=== PATIENT | female | born 1945 | race Caucasian/White ===

== ENCOUNTER → 2016-08-17 | Outpatient (CLI) | payer MEDICARE ==
[~2016-08-17] MED LIST: AMARYL4 MG PO; AMOXICILLIN500 M3 PO; ASPIRIN DELAYE325 MG PO; BENAZEPRIL PO; BP MED PO; CIPRO500 MG PO; COUMADIN10 M1 PO; Coumadin5 MG PO; ENOXAPARIN80 MG/0.2 SC; FLONASE ALLERG9.9 ML NAS; HCTZ PO; METOPROLOL PO; METOPROLOL SR50 MG PO; METOPROLOL SUC100 M1 PO; METOPROLOL TAR100 M1 PO; OCEAN104 ML NAS; SIMVASTATIN PO; SIMVASTATIN40 MG PO; TOPROL XL100 MG PO; ZITHROMAX500 MG PO; ZYRTEC-D 5 MG-11 TE1 PO; [UNRECOGNIZED DRUG - CODE] PO
[2016-08-17 18:57] LABS: INTERNATIONAL NORM RATIO 2.8 (2.0-3.5); PROTHROMBIN TIME 30.6 SECONDS (9.0-12.4)
== END | disposition home or self-care (01) ==
LOC: LAB 18:03
PROVIDERS: Family Medicine
DX: Z79.01 Long term (current) use of anticoagulants (principal)

== ENCOUNTER → 2016-11-09 | Outpatient (CLI) | payer MEDICARE ==
[2016-11-09 19:09] LABS: INTERNATIONAL NORM RATIO 2.4 (2.0-3.5); PROTHROMBIN TIME 27.4 SECONDS (9.0-12.4)
== END | disposition home or self-care (01) ==
LOC: LAB 18:11
PROVIDERS: Family Medicine
DX: Z79.01 Long term (current) use of anticoagulants (principal)

== ENCOUNTER → 2016-12-07 | Outpatient (CLI) | payer MEDICARE ==
[2016-12-07 18:45] LABS: INTERNATIONAL NORM RATIO 2.2 (2.0-3.5); PROTHROMBIN TIME 24.1 SECONDS (9.0-12.4)
== END | disposition home or self-care (01) ==
LOC: LAB 17:59
PROVIDERS: Family Medicine
DX: Z79.01 Long term (current) use of anticoagulants (principal)

== ENCOUNTER → 2016-12-16 | Outpatient (CLI) | payer MEDICARE ==
[2016-12-16 11:18] LABS: HEMATOCRIT 33.3 % (37.0-47.0); HEMOGLOBIN 11.2 g/dl (12.0-16.0); MEAN CORPUSCULAR HGB 29.9 pg (27.0-31.0); MEAN CORPUSCULAR HGB CONC 33.6 g/dl (33.0-37.0); MEAN PLATELET VOLUME 9.3 fl (9.6-12.3); RED BLOOD COUNT 3.74 10*6/uL (4.10-5.10); WHITE BLOOD COUNT 7.2 10*3/uL (4.8-10.8)
[2016-12-16 11:43] LABS: ALBUMIN 3.6 gm/dl (3.1-4.5); ALKALINE PHOSPHATASE 64 U/L (45-117); BILIRUBIN, TOTAL 0.4 mg/dl (0.2-1.0); BUN 16 mg/dl (7-24); CARBON DIOXIDE 29 mmol/L (21-32); CHLORIDE 97 mmol/L (98-107); CHOLESTEROL 233 mg/dL (<200); EST GLOM FILT AFRICAN AMERICAN > 60 ml/min; GLUCOSE 97 mg/dL (65-99); HDL CHOLESTEROL 40 mg/dl (40-60); LDL CHOLESTEROL 123 mg/dL (9-159); SGOT/AST 26 IU/L (3-35); SGPT/ALT 28 U/L (12-78); SODIUM 136 mmol/L (136-145); TOTAL PROTEIN 7.1 gm/dL (6.4-8.2); TRIGLYCERIDES 350 mg/dl (<150); VLDL CHOLESTEROL 70 mg/dL (6-40)
[2016-12-16 11:49] LABS: HEMOGLOBIN A1c 6.6 % (4.8-5.6)
== END | disposition home or self-care (01) ==
LOC: LAB 10:49
PROVIDERS: Family Medicine
DX: E78.00 Pure hypercholesterolemia, unspecified (principal); I10 Essential (primary) hypertension; E11.9 Type 2 diabetes mellitus without complications

== ENCOUNTER → 2017-01-04 | Outpatient (CLI) | payer MEDICARE ==
[2017-01-04 18:47] LABS: INTERNATIONAL NORM RATIO 2.4 (2.0-3.5); PROTHROMBIN TIME 27.4 SECONDS (9.0-12.4)
== END | disposition home or self-care (01) ==
LOC: LAB 18:17
PROVIDERS: Family Medicine
DX: Z79.01 Long term (current) use of anticoagulants (principal)

== ENCOUNTER → 2017-02-01 | Outpatient (CLI) | payer MEDICARE ==
[2017-02-01 19:52] LABS: INTERNATIONAL NORM RATIO 1.3 (2.0-3.5); PROTHROMBIN TIME 14.3 SECONDS (9.0-12.4)
== END | disposition home or self-care (01) ==
LOC: LAB 18:00
PROVIDERS: Family Medicine
DX: Z79.01 Long term (current) use of anticoagulants (principal)

== ENCOUNTER → 2017-02-08 | Outpatient (CLI) | payer MEDICARE ==
[2017-02-08 18:25] LABS: INTERNATIONAL NORM RATIO 1.2 (2.0-3.5); PROTHROMBIN TIME 12.6 SECONDS (9.0-12.4)
== END | disposition home or self-care (01) ==
LOC: LAB 17:56
PROVIDERS: Family Medicine
DX: Z79.01 Long term (current) use of anticoagulants (principal)

== ENCOUNTER → 2017-02-15 | Outpatient (CLI) | payer MEDICARE ==
[2017-02-15 18:43] LABS: INTERNATIONAL NORM RATIO 1.4 (2.0-3.5)
== END | disposition home or self-care (01) ==
LOC: LAB 18:08
PROVIDERS: Family Medicine
DX: Z79.01 Long term (current) use of anticoagulants (principal)

== ENCOUNTER → 2017-02-22 | Outpatient (CLI) | payer MEDICARE ==
[2017-02-22 18:44] LABS: INTERNATIONAL NORM RATIO 1.3 (2.0-3.5); PROTHROMBIN TIME 14.1 SECONDS (9.0-12.4)
== END | disposition home or self-care (01) ==
LOC: LAB 18:11
PROVIDERS: Family Medicine
DX: Z79.01 Long term (current) use of anticoagulants (principal)

== ENCOUNTER → 2017-03-01 | Outpatient (CLI) | payer MEDICARE ==
[2017-03-01 19:13] LABS: INTERNATIONAL NORM RATIO 2.1 (2.0-3.5); PROTHROMBIN TIME 23.9 SECONDS (9.0-12.4)
== END | disposition home or self-care (01) ==
LOC: LAB 17:59
PROVIDERS: Family Medicine
DX: Z79.01 Long term (current) use of anticoagulants (principal)

== ENCOUNTER 2017-03-29 21:27 | Emergency (ER) | payer MEDICARE ==
[~2017-03-29] VITALS: Ht 154.9 cm; Wt 77.1 kg
[2017-03-29 18:42] LABS: PROTHROMBIN TIME 107.3 SECONDS (9.0-12.4)
[2017-03-29 19:12] LABS: INTERNATIONAL NORM RATIO 8.8 (2.0-3.5)
[2017-03-29 22:30] LABS: BASO % 0.3 % (0.0-1.0); EOS # 0.1 10*3/uL (0.0-0.4); EOS % 1.9 % (1.0-4.0); HEMATOCRIT 28.5 % (37.0-47.0); HEMOGLOBIN 9.6 g/dl (12.0-16.0); LYMPH # 1.8 10*3/uL (1.3-4.4); MEAN CORPUSCULAR HGB 29.6 pg (27.0-31.0); MEAN CORPUSCULAR HGB CONC 33.7 g/dl (33.0-37.0); MEAN PLATELET VOLUME 9.1 fl (9.6-12.3); MONO # 0.4 10*3/uL (0.1-1.0); MONO % 5.2 % (3.0-9.0); NEUT # 4.9 10*3/uL (2.3-7.9); PLATELET COUNT AUTOMATED 220 10*3/uL (130-400); RED BLOOD COUNT 3.24 10*6/uL (4.10-5.10); RED CELL DISTRI WIDTH 12.9 % (0-14.5); WHITE BLOOD COUNT 7.3 10*3/uL (4.8-10.8)
[2017-03-29 22:58] LABS: INTERNATIONAL NORM RATIO 9.1 (2.0-3.5); PROTHROMBIN TIME 111.3 SECONDS (9.0-12.4)
== END 2017-03-29 23:42 | disposition home or self-care (01) ==
LOC: EDSTATUS 21:27 → ED 21:28
PROVIDERS: Emergency Medicine Emergency Medical Services; Family Medicine
DX: D68.32 Hemorrhagic disorder due to extrinsic circulating anticoagulants (principal); I48.91 Unspecified atrial fibrillation; E11.9 Type 2 diabetes mellitus without complications; I10 Essential (primary) hypertension; E78.5 Hyperlipidemia, unspecified; E66.9 Obesity, unspecified; M19.90 Unspecified osteoarthritis, unspecified site; Z79.01 Long term (current) use of anticoagulants; Z87.891 Personal history of nicotine dependence; Z90.710 Acquired absence of both cervix and uterus; Z98.890 Other specified postprocedural states; Z79.899 Other long term (current) drug therapy

== ENCOUNTER → 2017-03-31 | Outpatient (CLI) | payer MEDICARE ==
[2017-03-31 12:13] LABS: INTERNATIONAL NORM RATIO 1.1 (2.0-3.5); PROTHROMBIN TIME 11.9 SECONDS (9.0-12.4)
== END | disposition home or self-care (01) ==
LOC: LAB 11:29
PROVIDERS: Family Medicine
DX: Z79.01 Long term (current) use of anticoagulants (principal)

== ENCOUNTER → 2017-04-10 | Outpatient (CLI) | payer MEDICARE ==
[2017-04-10 18:52] LABS: INTERNATIONAL NORM RATIO 1.6 (2.0-3.5)
== END ==
LOC: LAB 18:10
PROVIDERS: Family Medicine
DX: Z79.01 Long term (current) use of anticoagulants (principal)

== ENCOUNTER → 2017-04-21 | Outpatient (CLI) | payer MEDICARE ==
[2017-04-21 13:45] LABS: INTERNATIONAL NORM RATIO 2.6 (2.0-3.5)
== END | disposition home or self-care (01) ==
LOC: LAB 13:02
PROVIDERS: Family Medicine
DX: Z79.01 Long term (current) use of anticoagulants (principal)

== ENCOUNTER → 2017-05-26 | Outpatient (CLI) | payer MEDICARE ==
[2017-05-26 08:31] LABS: ALBUMIN 3.7 gm/dl (3.1-4.5); CREATININE 1.14 mg/dL (0.55-1.02); POTASSIUM 3.4 mmol/L (3.5-5.1); TOTAL PROTEIN 7.6 gm/dL (6.4-8.2)
[2017-05-26 08:40] LABS: INTERNATIONAL NORM RATIO 2.8 (2.0-3.5)
== END | disposition home or self-care (01) ==
LOC: LAB 07:25
PROVIDERS: Family Medicine
DX: I10 Essential (primary) hypertension (principal); E11.9 Type 2 diabetes mellitus without complications; E78.00 Pure hypercholesterolemia, unspecified; Z79.01 Long term (current) use of anticoagulants

== ENCOUNTER → 2017-07-07 | Outpatient (CLI) | payer MEDICARE ==
[2017-07-07 13:14] LABS: INTERNATIONAL NORM RATIO 2.6 (2.0-3.5)
== END | disposition home or self-care (01) ==
LOC: LAB 12:33
PROVIDERS: Family Medicine
DX: Z79.01 Long term (current) use of anticoagulants (principal)

== ENCOUNTER → 2017-08-04 | Outpatient (CLI) | payer MEDICARE | END | disposition home or self-care (01) | LOC: LAB 12:40 | PROVIDERS: Family Medicine | DX: Z51.81 Encounter for therapeutic drug level monitoring (principal); Z79.01 Long term (current) use of anticoagulants ==

== ENCOUNTER → 2017-09-01 | Outpatient (CLI) | payer MEDICARE | END | disposition home or self-care (01) | LOC: LAB 12:43 | PROVIDERS: Family Medicine | DX: Z51.81 Encounter for therapeutic drug level monitoring (principal); Z79.01 Long term (current) use of anticoagulants ==

== ENCOUNTER → 2017-09-29 | Outpatient (CLI) | payer MEDICARE ==
[2017-09-29 14:33] LABS: INTERNATIONAL NORM RATIO 2.3 (2.0-3.5)
== END | disposition home or self-care (01) ==
LOC: LAB 13:00
PROVIDERS: Family Medicine
DX: Z51.81 Encounter for therapeutic drug level monitoring (principal); Z79.01 Long term (current) use of anticoagulants

== ENCOUNTER → 2017-10-27 | Outpatient (CLI) | payer MEDICARE ==
[2017-10-27 13:03] LABS: INTERNATIONAL NORM RATIO 2.7 (2.0-3.5)
== END | disposition home or self-care (01) ==
LOC: LAB 11:43
PROVIDERS: Family Medicine
DX: Z51.81 Encounter for therapeutic drug level monitoring (principal); Z79.01 Long term (current) use of anticoagulants

== ENCOUNTER → 2017-11-25 | Outpatient (CLI) | payer MEDICARE ==
[2017-11-25 10:36] LABS: INTERNATIONAL NORM RATIO 2.8 (2.0-3.5)
== END | disposition home or self-care (01) ==
LOC: LAB 09:31
PROVIDERS: Family Medicine
DX: Z51.81 Encounter for therapeutic drug level monitoring (principal); Z79.01 Long term (current) use of anticoagulants

== ENCOUNTER → 2017-12-29 | Outpatient (CLI) | payer MEDICARE ==
[2017-12-29 11:23] LABS: HEMATOCRIT 33.8 % (37.0-47.0); HEMOGLOBIN 10.9 g/dl (12.0-16.0); MEAN CELL VOLUME 91.8 fl (81.0-99.0); MEAN CORPUSCULAR HGB 29.6 pg (27.0-31.0); MEAN CORPUSCULAR HGB CONC 32.2 g/dl (33.0-37.0); MEAN PLATELET VOLUME 9.7 fl (9.6-12.3); RED BLOOD COUNT 3.68 10*6/uL (4.10-5.10); RED CELL DISTRI WIDTH 12.7 % (0-14.5); WHITE BLOOD COUNT 6.1 10*3/uL (4.8-10.8)
[2017-12-29 11:44] LABS: ALBUMIN 3.8 gm/dl (3.1-4.5); BUN 14 mg/dl (7-24); CHLORIDE 101 mmol/L (98-107); CHOLESTEROL 198 mg/dL (<200); CREATININE 1.07 mg/dL (0.55-1.02); POTASSIUM 4.3 mmol/L (3.5-5.1); SGOT/AST 20 IU/L (3-35); SGPT/ALT 25 U/L (12-78); SODIUM 134 mmol/L (136-145); TOTAL PROTEIN 7.2 gm/dL (6.4-8.2); TRIGLYCERIDES 230 mg/dl (<150); VLDL CHOLESTEROL 46 mg/dL (6-40)
[2017-12-29 11:45] LABS: ALKALINE PHOSPHATASE 55 U/L (45-117); HDL CHOLESTEROL 36 mg/dl (40-60); LDL CHOLESTEROL 116 mg/dL (9-159)
[2017-12-29 12:06] LABS: INTERNATIONAL NORM RATIO 2.1 (2.0-3.5)
== END | disposition home or self-care (01) ==
LOC: LAB 10:27
PROVIDERS: Family Medicine
DX: I10 Essential (primary) hypertension (principal); E11.9 Type 2 diabetes mellitus without complications; E55.9 Vitamin D deficiency, unspecified; E78.00 Pure hypercholesterolemia, unspecified; Z79.01 Long term (current) use of anticoagulants

== ENCOUNTER → 2018-01-06 | Emergency (ER) | payer MEDICARE ==
[~2018-01-06] VITALS: Ht 152.4 cm; Wt 77.1 kg
== END ==
LOC: ED 13:12
DX: S30.861A Insect bite (nonvenomous) of abdominal wall, initial encounter (principal); I48.91 Unspecified atrial fibrillation; E11.9 Type 2 diabetes mellitus without complications; E78.5 Hyperlipidemia, unspecified; I10 Essential (primary) hypertension; E66.9 Obesity, unspecified; M19.90 Unspecified osteoarthritis, unspecified site; Z79.01 Long term (current) use of anticoagulants; Z87.891 Personal history of nicotine dependence; Z90.710 Acquired absence of both cervix and uterus; Z98.890 Other specified postprocedural states; Z79.899 Other long term (current) drug therapy; W57.XXXA Bitten or stung by nonvenomous insect and other nonvenomous arthropods, initial encounter; Y93.89 Activity, other specified; Y92.89 Other specified places as the place of occurrence of the external cause; Y99.9 Unspecified external cause status

== ENCOUNTER → 2018-01-26 | Outpatient (CLI) | payer MEDICARE ==
[2018-01-26 13:13] LABS: INTERNATIONAL NORM RATIO 1.7 (2.0-3.5)
== END | disposition home or self-care (01) ==
LOC: LAB 11:56
PROVIDERS: Family Medicine
DX: Z79.01 Long term (current) use of anticoagulants (principal)

== ENCOUNTER → 2018-02-06 | Outpatient (CLI) | payer MEDICARE ==
[2018-02-06 11:38] LABS: INTERNATIONAL NORM RATIO 1.6 (2.0-3.5)
== END | disposition home or self-care (01) ==
LOC: LAB 10:25
PROVIDERS: Family Medicine
DX: Z51.81 Encounter for therapeutic drug level monitoring (principal); Z79.01 Long term (current) use of anticoagulants

== ENCOUNTER → 2018-02-13 | Outpatient (CLI) | payer MEDICARE ==
[2018-02-13 11:00] LABS: INTERNATIONAL NORM RATIO 1.8 (2.0-3.5)
== END | disposition home or self-care (01) ==
LOC: LAB 10:13
PROVIDERS: Family Medicine
DX: Z51.81 Encounter for therapeutic drug level monitoring (principal); Z79.01 Long term (current) use of anticoagulants

== ENCOUNTER → 2018-02-20 | Outpatient (CLI) | payer MEDICARE ==
[2018-02-20 14:40] LABS: INTERNATIONAL NORM RATIO 1.8 (2.0-3.5)
== END | disposition home or self-care (01) ==
LOC: LAB 12:54
PROVIDERS: Family Medicine
DX: Z51.81 Encounter for therapeutic drug level monitoring (principal); Z79.01 Long term (current) use of anticoagulants

== ENCOUNTER → 2018-03-02 | Outpatient (CLI) | payer MEDICARE ==
[2018-03-02 13:45] LABS: INTERNATIONAL NORM RATIO 1.8 (2.0-3.5)
== END | disposition home or self-care (01) ==
LOC: LAB 13:03
PROVIDERS: Family Medicine
DX: Z51.81 Encounter for therapeutic drug level monitoring (principal); Z79.01 Long term (current) use of anticoagulants

== ENCOUNTER → 2018-04-26 | Outpatient (CLI) | payer MEDICARE ==
[2018-04-26 14:22] LABS: INTERNATIONAL NORM RATIO 1.5 (2.0-3.5)
== END | disposition home or self-care (01) ==
LOC: LAB 13:13
PROVIDERS: Family Medicine
DX: Z51.81 Encounter for therapeutic drug level monitoring (principal); Z79.01 Long term (current) use of anticoagulants

== ENCOUNTER → 2018-05-10 | Outpatient (CLI) | payer MEDICARE ==
[2018-05-10 14:03] LABS: INTERNATIONAL NORM RATIO 1.4 (2.0-3.5)
== END | disposition home or self-care (01) ==
LOC: LAB 13:07
PROVIDERS: Family Medicine
DX: Z51.81 Encounter for therapeutic drug level monitoring (principal); Z79.01 Long term (current) use of anticoagulants

== ENCOUNTER → 2018-06-06 | Outpatient (CLI) | payer MEDICARE ==
[2018-06-06 15:36] LABS: INTERNATIONAL NORM RATIO 1.3 (2.0-3.5)
== END | disposition home or self-care (01) ==
LOC: LAB 14:13
PROVIDERS: Family Medicine
DX: Z79.01 Long term (current) use of anticoagulants (principal)

== ENCOUNTER → 2018-11-07 | Outpatient (CLI) | payer MEDICARE ==
[~2018-11-07] MED LIST changes: +AMINOPHYLLIN200 MG PO
[2018-11-07 11:42] LABS: ALBUMIN 3.3 gm/dl (3.1-4.5); ALKALINE PHOSPHATASE 66 U/L (45-117); BUN 16 mg/dl (7-24); CHLORIDE 103 mmol/L (98-107); CHOLESTEROL 223 mg/dL (<200); CPK 61 U/L (26-192); CREATININE 1.08 mg/dL (0.55-1.02); HDL CHOLESTEROL 39 mg/dl (40-60); LDL CHOLESTEROL 145 mg/dL (9-159); POTASSIUM 4.5 mmol/L (3.5-5.1); SGOT/AST 26 IU/L (3-35); SGPT/ALT 39 U/L (12-78); SODIUM 137 mmol/L (136-145); TOTAL PROTEIN 7.2 gm/dL (6.4-8.2); TRIGLYCERIDES 196 mg/dl (<150); VLDL CHOLESTEROL 39 mg/dL (6-40)
== END | disposition home or self-care (01) ==
LOC: LAB 10:47
PROVIDERS: Family Medicine
DX: E11.9 Type 2 diabetes mellitus without complications (principal); I10 Essential (primary) hypertension; E78.00 Pure hypercholesterolemia, unspecified

== ENCOUNTER → 2019-02-06 | Outpatient (CLI) | payer MEDICARE ==
[2019-02-06 13:27] LABS: HEMATOCRIT 36.9 % (37.0-47.0); HEMOGLOBIN 12.1 g/dl (12.0-16.0); MEAN CELL VOLUME 92.5 fl (81.0-99.0); MEAN CORPUSCULAR HGB 30.3 pg (27.0-31.0); MEAN CORPUSCULAR HGB CONC 32.8 g/dl (33.0-37.0); MEAN PLATELET VOLUME 9.5 fl (9.6-12.3); RED BLOOD COUNT 3.99 10*6/uL (4.10-5.10); RED CELL DISTRI WIDTH 12.7 % (0-14.5); WHITE BLOOD COUNT 7.2 10*3/uL (4.8-10.8)
[2019-02-06 13:53] LABS: ALBUMIN 3.7 gm/dl (3.1-4.5); BUN 17 mg/dl (7-24); CHLORIDE 101 mmol/L (98-107); POTASSIUM 4.2 mmol/L (3.5-5.1); SODIUM 137 mmol/L (136-145)
[2019-02-06 13:57] LABS: ALKALINE PHOSPHATASE 65 U/L (45-117); CHOLESTEROL 213 mg/dL (<200); CPK 82 U/L (26-192); CREATININE 1.07 mg/dL (0.55-1.02); HDL CHOLESTEROL 38 mg/dl (40-60); LDL CHOLESTEROL 123 mg/dL (9-159); SGOT/AST 22 IU/L (3-35); SGPT/ALT 30 U/L (12-78); TOTAL PROTEIN 7.2 gm/dL (6.4-8.2); TRIGLYCERIDES 262 mg/dl (<150); VLDL CHOLESTEROL 52 mg/dL (6-40)
== END | disposition home or self-care (01) ==
LOC: LAB 12:59
PROVIDERS: Family Medicine
DX: E11.9 Type 2 diabetes mellitus without complications (principal); E78.00 Pure hypercholesterolemia, unspecified; I10 Essential (primary) hypertension; M19.90 Unspecified osteoarthritis, unspecified site; E55.9 Vitamin D deficiency, unspecified

== ENCOUNTER → 2019-03-20 | Outpatient (CLI) | payer MEDICARE ==
[2019-03-20 13:06] LABS: ALBUMIN 3.6 gm/dl (3.1-4.5); CREATININE 1.11 mg/dL (0.55-1.02); POTASSIUM 4.2 mmol/L (3.5-5.1); TOTAL PROTEIN 7.1 gm/dL (6.4-8.2)
== END | disposition home or self-care (01) ==
LOC: LAB 12:22
PROVIDERS: Family Medicine
DX: E78.00 Pure hypercholesterolemia, unspecified (principal)

== ENCOUNTER 2019-03-21 20:32 | Emergency (ER) | payer MEDICARE ==
[~2019-03-21] VITALS: Ht 162.5 cm; Wt 84.8 kg
[~2019-03-21 20:32] MED LIST changes: -AMINOPHYLLIN200 MG PO
[2019-03-21 21:06] LABS: BILIRUBIN NEGATIVE (NEGATIVE); BLOOD 1+ (NEGATIVE); CLARITY SL CLOUDY (CLEAR); COLOR YELLOW (YELLOW); GLUCOSE NEGATIVE (NEGATIVE); KETONE 1+ (NEGATIVE); LEUKO ESTERASE 3+ (NEGATIVE); NITRITE NEGATIVE (NEGATIVE); PH 6.5 (5.0-9.0); UROBILINOGEN 0.2 E.U./dl (0.2-1.0)
[2019-03-21 21:35] LABS: BACTERIA 1+; EPITHELIAL CELLS 0-2; WBC 51-100 wbc/hpf (0-5)
[2019-03-21] MEDS ORDERED: AMINOPHYLLIN200 MG PO (22:13)
== END 2019-03-21 22:20 | disposition home or self-care (01) ==
LOC: ED 20:32
PROVIDERS: Emergency Medicine Emergency Medical Services
DX: N39.0 Urinary tract infection, site not specified (principal); Z79.899 Other long term (current) drug therapy; Z90.710 Acquired absence of both cervix and uterus; Z90.49 Acquired absence of other specified parts of digestive tract; Z87.891 Personal history of nicotine dependence

== ENCOUNTER → 2019-05-08 | Outpatient (CLI) | payer MEDICARE ==
[~2019-05-08] MED LIST changes: +AMINOPHYLLIN200 MG PO
[2019-05-08 13:00] LABS: HEMATOCRIT 35.5 % (37.0-47.0); HEMOGLOBIN 11.6 g/dl (12.0-16.0); MEAN CELL VOLUME 95.4 fl (81.0-99.0); MEAN CORPUSCULAR HGB 31.2 pg (27.0-31.0); MEAN CORPUSCULAR HGB CONC 32.7 g/dl (33.0-37.0); MEAN PLATELET VOLUME 9.7 fl (9.6-12.3); RED BLOOD COUNT 3.72 10*6/uL (4.10-5.10); WHITE BLOOD COUNT 8.7 10*3/uL (4.8-10.8)
[2019-05-08 13:13] LABS: ALBUMIN 3.8 gm/dl (3.1-4.5); BUN 15 mg/dl (7-24); CHLORIDE 100 mmol/L (98-107); CHOLESTEROL 139 mg/dL (<200); CPK 82 U/L (26-192); CREATININE 1.05 mg/dL (0.55-1.02); HDL CHOLESTEROL 43 mg/dl (40-60); POTASSIUM 4.3 mmol/L (3.5-5.1); SGOT/AST 19 IU/L (3-35); SGPT/ALT 30 U/L (12-78); SODIUM 134 mmol/L (136-145)
[2019-05-08 13:16] LABS: ALKALINE PHOSPHATASE 64 U/L (45-117); LDL CHOLESTEROL 58 mg/dL (9-159); TOTAL PROTEIN 7.1 gm/dL (6.4-8.2); TRIGLYCERIDES 190 mg/dl (<150); VLDL CHOLESTEROL 38 mg/dL (6-40)
== END | disposition home or self-care (01) ==
LOC: LAB 12:19
PROVIDERS: Family Medicine
DX: E55.9 Vitamin D deficiency, unspecified (principal); E78.00 Pure hypercholesterolemia, unspecified; E11.9 Type 2 diabetes mellitus without complications; I48.91 Unspecified atrial fibrillation; I10 Essential (primary) hypertension

== ENCOUNTER → 2019-08-08 | Outpatient (CLI) | payer MEDICARE ==
[2019-08-08 13:45] LABS: ALBUMIN 3.7 gm/dl (3.1-4.5); CREATININE 1.15 mg/dL (0.55-1.02); POTASSIUM 4.1 mmol/L (3.5-5.1); TOTAL PROTEIN 7.2 gm/dL (6.4-8.2)
== END | disposition home or self-care (01) ==
LOC: LAB 13:03
PROVIDERS: Family Medicine
DX: E78.00 Pure hypercholesterolemia, unspecified (principal)

== ENCOUNTER → 2020-03-18 | Outpatient (CLI) | payer MEDICARE ==
[2020-03-18 13:35] LABS: ALBUMIN 3.6 gm/dl (3.1-4.5); CREATININE 1.15 mg/dL (0.55-1.02); POTASSIUM 4.1 mmol/L (3.5-5.1); TOTAL PROTEIN 7.6 gm/dL (6.4-8.2)
== END | disposition home or self-care (01) ==
LOC: LAB 12:42
PROVIDERS: Family Medicine
DX: E11.9 Type 2 diabetes mellitus without complications (principal); E55.9 Vitamin D deficiency, unspecified; E78.00 Pure hypercholesterolemia, unspecified

== ENCOUNTER → 2020-06-18 | Outpatient (CLI) | payer MEDICARE ==
[2020-06-18 14:00] LABS: HEMATOCRIT 36.4 % (37.0-47.0); MEAN CELL VOLUME 93.6 fl (81.0-99.0); MEAN CORPUSCULAR HGB 30.1 pg (27.0-31.0); MEAN CORPUSCULAR HGB CONC 32.1 g/dl (33.0-37.0); MEAN PLATELET VOLUME 9.4 fl (9.6-12.3); RED BLOOD COUNT 3.89 10*6/uL (4.10-5.10); RED CELL DISTRI WIDTH 13.3 % (0-14.5)
[2020-06-18 14:42] LABS: ALBUMIN 3.4 gm/dl (3.1-4.5); ALKALINE PHOSPHATASE 65 U/L (45-117); BUN 12 mg/dl (7-24); CHLORIDE 102 mmol/L (98-107); CHOLESTEROL 132 mg/dL (<200); CPK 60 U/L (26-192); CREATININE 0.99 mg/dL (0.55-1.02); HDL CHOLESTEROL 46 mg/dl (40-60); LDL CHOLESTEROL 53 mg/dL (9-159); POTASSIUM 4.1 mmol/L (3.5-5.1); SGOT/AST 22 IU/L (3-35); SGPT/ALT 28 U/L (12-78); SODIUM 137 mmol/L (136-145); TOTAL PROTEIN 7.1 gm/dL (6.4-8.2); TRIGLYCERIDES 164 mg/dl (<150); VLDL CHOLESTEROL 33 mg/dL (6-40)
== END | disposition home or self-care (01) ==
LOC: LAB 13:38
PROVIDERS: ATTEND Family Medicine
DX: E11.9 Type 2 diabetes mellitus without complications (principal); I10 Essential (primary) hypertension; E78.00 Pure hypercholesterolemia, unspecified

== ENCOUNTER → 2020-09-24 | Outpatient (CLI) | payer MEDICARE ==
[2020-09-24 15:03] LABS: ALBUMIN 3.6 gm/dl (3.1-4.5); ALKALINE PHOSPHATASE 72 U/L (45-117); BUN 15 mg/dl (7-24); CHLORIDE 105 mmol/L (98-107); CHOLESTEROL 142 mg/dL (<200); CPK 66 U/L (26-192); CREATININE 0.97 mg/dL (0.55-1.02); HDL CHOLESTEROL 46 mg/dl (40-60); LDL CHOLESTEROL 59 mg/dL (9-159); SGOT/AST 24 IU/L (3-35); SGPT/ALT 33 U/L (12-78); SODIUM 138 mmol/L (136-145); TOTAL PROTEIN 7.4 gm/dL (6.4-8.2); TRIGLYCERIDES 187 mg/dl (<150); VLDL CHOLESTEROL 37 mg/dL (6-40)
== END | disposition home or self-care (01) ==
LOC: LAB 14:04
PROVIDERS: ATTEND Family Medicine
DX: I10 Essential (primary) hypertension (principal); E78.00 Pure hypercholesterolemia, unspecified

== ENCOUNTER → 2020-12-24 | Outpatient (CLI) | payer MEDICARE ==
[2020-12-24 14:07] LABS: HEMATOCRIT 37.4 % (37.0-47.0); MEAN CELL VOLUME 91.4 fl (81.0-99.0); MEAN CORPUSCULAR HGB 29.6 pg (27.0-31.0); MEAN CORPUSCULAR HGB CONC 32.4 g/dl (33.0-37.0); MEAN PLATELET VOLUME 9.3 fl (9.6-12.3); RED BLOOD COUNT 4.09 10*6/uL (4.10-5.10); RED CELL DISTRI WIDTH 12.7 % (0-14.5)
[2020-12-24 14:32] LABS: ALBUMIN 3.4 gm/dl (3.1-4.5); ALKALINE PHOSPHATASE 71 U/L (45-117); BUN 18 mg/dl (7-24); CHLORIDE 102 mmol/L (98-107); CHOLESTEROL 142 mg/dL (<200); CPK 71 U/L (26-192); CREATININE 1.06 mg/dL (0.55-1.02); LDL CHOLESTEROL 60 mg/dL (9-159); POTASSIUM 4.1 mmol/L (3.5-5.1); SGOT/AST 21 IU/L (3-35); SGPT/ALT 30 U/L (12-78); SODIUM 134 mmol/L (136-145); TOTAL PROTEIN 7.4 gm/dL (6.4-8.2); TRIGLYCERIDES 174 mg/dl (<150)
== END | disposition home or self-care (01) ==
LOC: LAB 13:37
PROVIDERS: ATTEND Family Medicine
DX: E11.9 Type 2 diabetes mellitus without complications (principal); I10 Essential (primary) hypertension; E55.9 Vitamin D deficiency, unspecified; E78.00 Pure hypercholesterolemia, unspecified

== ENCOUNTER → 2021-03-24 | Outpatient (CLI) | payer MEDICARE ==
[2021-03-24 12:35] LABS: HEMATOCRIT 36.4 % (37.0-47.0); MEAN CELL VOLUME 92.4 fl (81.0-99.0); MEAN CORPUSCULAR HGB 30.5 pg (27.0-31.0); MEAN PLATELET VOLUME 9.2 fl (9.6-12.3); RED BLOOD COUNT 3.94 10*6/uL (4.10-5.10); RED CELL DISTRI WIDTH 13.1 % (0-14.5); WHITE BLOOD COUNT 7.8 10*3/uL (4.8-10.8)
[2021-03-24 12:55] LABS: ALBUMIN 3.6 gm/dl (3.1-4.5); ALKALINE PHOSPHATASE 57 U/L (45-117); BUN 17 mg/dl (7-24); CHLORIDE 102 mmol/L (98-107); CHOLESTEROL 137 mg/dL (<200); CPK 77 U/L (26-192); CREATININE 0.99 mg/dL (0.55-1.02); LDL CHOLESTEROL 56 mg/dL (9-159); POTASSIUM 4.1 mmol/L (3.5-5.1); SGOT/AST 21 IU/L (3-35); SGPT/ALT 26 U/L (12-78); SODIUM 137 mmol/L (136-145); TOTAL PROTEIN 7.1 gm/dL (6.4-8.2); TRIGLYCERIDES 181 mg/dl (<150)
== END | disposition home or self-care (01) ==
LOC: LAB 12:19
PROVIDERS: ATTEND Family Medicine
DX: I10 Essential (primary) hypertension (principal); E11.9 Type 2 diabetes mellitus without complications; E78.00 Pure hypercholesterolemia, unspecified

== ENCOUNTER → 2021-06-24 | Outpatient (CLI) | payer MEDICARE ==
[2021-06-24 13:03] LABS: HEMATOCRIT 36.8 % (37.0-47.0); MEAN CELL VOLUME 92.7 fl (81.0-99.0); MEAN CORPUSCULAR HGB 30.5 pg (27.0-31.0); MEAN CORPUSCULAR HGB CONC 32.9 g/dl (33.0-37.0); MEAN PLATELET VOLUME 9.4 fl (9.6-12.3); RED BLOOD COUNT 3.97 10*6/uL (4.10-5.10); WHITE BLOOD COUNT 7.6 10*3/uL (4.8-10.8)
[2021-06-24 13:13] LABS: CHOLESTEROL 143 mg/dL (<200); LDL CHOLESTEROL 59 mg/dL (9-159); TRIGLYCERIDES 184 mg/dl (<150)
== END | disposition home or self-care (01) ==
LOC: LAB 12:37
PROVIDERS: ATTEND Family Medicine
DX: I10 Essential (primary) hypertension (principal); E11.9 Type 2 diabetes mellitus without complications; E78.00 Pure hypercholesterolemia, unspecified

== ENCOUNTER → 2021-09-23 | Outpatient (CLI) | payer MEDICARE ==
[2021-09-23 13:20] LABS: HEMATOCRIT 37.1 % (37.0-47.0); MEAN CELL VOLUME 92.8 fl (81.0-99.0); MEAN CORPUSCULAR HGB 30.5 pg (27.0-31.0); MEAN CORPUSCULAR HGB CONC 32.9 g/dl (33.0-37.0); MEAN PLATELET VOLUME 9.7 fl (9.6-12.3); WHITE BLOOD COUNT 8.4 10*3/uL (4.8-10.8)
[2021-09-23 13:45] LABS: ALBUMIN 3.3 gm/dl (3.1-4.5); ALKALINE PHOSPHATASE 56 U/L (45-117); BUN 13 mg/dl (7-24); CHLORIDE 106 mmol/L (98-107); CHOLESTEROL 149 mg/dL (<200); CPK 68 U/L (26-192); LDL CHOLESTEROL 63 mg/dL (9-159); POTASSIUM 4.1 mmol/L (3.5-5.1); SGOT/AST 21 IU/L (3-35); SGPT/ALT 35 U/L (12-78); SODIUM 138 mmol/L (136-145); TRIGLYCERIDES 197 mg/dl (<150)
== END | disposition home or self-care (01) ==
LOC: LAB 12:53
PROVIDERS: ATTEND Family Medicine
DX: E11.9 Type 2 diabetes mellitus without complications (principal); I10 Essential (primary) hypertension; E78.2 Mixed hyperlipidemia

== ENCOUNTER → 2021-12-21 | Outpatient (CLI) | payer MEDICARE ==
[2021-12-21 14:16] LABS: HEMATOCRIT 37.2 % (37.0-47.0); MEAN CELL VOLUME 92.1 fl (81.0-99.0); MEAN CORPUSCULAR HGB 30.2 pg (27.0-31.0); MEAN CORPUSCULAR HGB CONC 32.8 g/dl (33.0-37.0); MEAN PLATELET VOLUME 9.5 fl (9.6-12.3); RED BLOOD COUNT 4.04 10*6/uL (4.10-5.10); RED CELL DISTRI WIDTH 13.1 % (0-14.5); WHITE BLOOD COUNT 7.5 10*3/uL (4.8-10.8)
[2021-12-21 14:42] LABS: ALKALINE PHOSPHATASE 57 U/L (45-117); BUN 17 mg/dl (7-24); CHLORIDE 104 mmol/L (98-107); CHOLESTEROL 142 mg/dL (<200); CPK 56 U/L (26-192); CREATININE 1.01 mg/dL (0.55-1.02); LDL CHOLESTEROL 58 mg/dL (9-159); POTASSIUM 4.4 mmol/L (3.5-5.1); SGOT/AST 24 IU/L (3-35); SGPT/ALT 31 U/L (12-78); SODIUM 137 mmol/L (136-145); TRIGLYCERIDES 195 mg/dl (<150)
== END | disposition home or self-care (01) ==
LOC: LAB 13:39
PROVIDERS: ATTEND Family Medicine
DX: I10 Essential (primary) hypertension (principal); E11.9 Type 2 diabetes mellitus without complications; E78.00 Pure hypercholesterolemia, unspecified

== ENCOUNTER → 2022-03-31 | Outpatient (CLI) | payer MEDICARE ==
[2022-03-31 13:31] LABS: HEMATOCRIT 36.3 % (37.0-47.0); MEAN CELL VOLUME 91.4 fl (81.0-99.0); MEAN CORPUSCULAR HGB CONC 33.9 g/dl (33.0-37.0); MEAN PLATELET VOLUME 9.2 fl (9.6-12.3); RED BLOOD COUNT 3.97 10*6/uL (4.10-5.10); RED CELL DISTRI WIDTH 13.2 % (0-14.5); WHITE BLOOD COUNT 8.1 10*3/uL (4.8-10.8)
[2022-03-31 13:47] LABS: ALKALINE PHOSPHATASE 53 U/L (45-117); BUN 17 mg/dl (7-24); CHLORIDE 103 mmol/L (98-107); CHOLESTEROL 153 mg/dL (<200); CREATININE 0.94 mg/dL (0.55-1.02); LDL CHOLESTEROL 71 mg/dL (9-159); POTASSIUM 4.1 mmol/L (3.5-5.1); SGOT/AST 20 IU/L (3-35); SGPT/ALT 30 U/L (12-78); SODIUM 137 mmol/L (136-145); TOTAL PROTEIN 6.9 gm/dL (6.4-8.2); TRIGLYCERIDES 178 mg/dl (<150)
== END | disposition home or self-care (01) ==
LOC: LAB 13:14
PROVIDERS: ATTEND Family Medicine
DX: E11.9 Type 2 diabetes mellitus without complications (principal); I10 Essential (primary) hypertension; E78.00 Pure hypercholesterolemia, unspecified

== ENCOUNTER → 2022-07-06 | Outpatient (CLI) | payer MEDICARE ==
[2022-07-06 13:55] LABS: HEMATOCRIT 38.2 % (37.0-47.0); MEAN CELL VOLUME 93.6 fl (81.0-99.0); MEAN CORPUSCULAR HGB 30.6 pg (27.0-31.0); MEAN CORPUSCULAR HGB CONC 32.7 g/dl (33.0-37.0); MEAN PLATELET VOLUME 9.9 fl (9.6-12.3); RED BLOOD COUNT 4.08 10*6/uL (4.10-5.10); RED CELL DISTRI WIDTH 13.2 % (0-14.5); WHITE BLOOD COUNT 7.5 10*3/uL (4.8-10.8)
[2022-07-06 14:14] LABS: CREATININE 1.17 mg/dL (0.55-1.02); POTASSIUM 4.4 mmol/L (3.5-5.1); TOTAL PROTEIN 7.5 gm/dL (6.4-8.2)
== END | disposition home or self-care (01) ==
LOC: LAB 12:50
PROVIDERS: ATTEND Family Medicine
DX: E11.9 Type 2 diabetes mellitus without complications (principal); I10 Essential (primary) hypertension; E78.00 Pure hypercholesterolemia, unspecified

== ENCOUNTER → 2022-10-04 | Outpatient (CLI) | payer MEDICARE ==
[2022-10-04 13:45] LABS: ALKALINE PHOSPHATASE 46 U/L (46-116); BUN 18 mg/dl (9-23); CHLORIDE 103 mmol/L (98-107); CHOLESTEROL 121 mg/dL (<200); CPK 132 U/L (34-171); LDL CHOLESTEROL 60 mg/dL (9-159); POTASSIUM 4.5 mmol/L (3.4-5.1); SGPT/ALT 38 U/L (10-49); TOTAL PROTEIN 6.9 gm/dL (6.0-8.0); TRIGLYCERIDES 91 mg/dl (<150)
[2022-10-04 14:22] LABS: VITAMIN D, 25-HYDROXY 47.6 ng/mL (30-100)
== END | disposition home or self-care (01) ==
LOC: LAB 13:05
PROVIDERS: ATTEND Family Medicine
DX: E11.9 Type 2 diabetes mellitus without complications (principal); E78.00 Pure hypercholesterolemia, unspecified; I48.91 Unspecified atrial fibrillation; R53.83 Other fatigue; E55.9 Vitamin D deficiency, unspecified

== ENCOUNTER → 2023-01-03 | Outpatient (CLI) | payer MEDICARE ==
[2023-01-03 12:17] LABS: HEMATOCRIT 34.8 % (37.0-47.0); MEAN CELL VOLUME 93.5 fl (81.0-99.0); MEAN CORPUSCULAR HGB 30.6 pg (27.0-31.0); MEAN CORPUSCULAR HGB CONC 32.8 g/dl (33.0-37.0); MEAN PLATELET VOLUME 9.4 fl (9.6-12.3); RED BLOOD COUNT 3.72 10*6/uL (4.10-5.10); RED CELL DISTRI WIDTH 13.6 % (0-14.5); WHITE BLOOD COUNT 7.3 10*3/uL (4.8-10.8)
[2023-01-03 12:50] LABS: ALKALINE PHOSPHATASE 57 U/L (46-116); BUN 13 mg/dl (9-23); CHLORIDE 100 mmol/L (98-107); CHOLESTEROL 102 mg/dL (<200); CPK 160 U/L (34-171); LDL CHOLESTEROL 46 mg/dL (9-159); POTASSIUM 4.5 mmol/L (3.4-5.1); SGPT/ALT 51 U/L (10-49); TOTAL PROTEIN 6.6 gm/dL (6.0-8.0); TRIGLYCERIDES 68 mg/dl (<150)
== END | disposition home or self-care (01) ==
LOC: LAB 11:48
PROVIDERS: ATTEND Family Medicine
DX: I10 Essential (primary) hypertension (principal); E11.9 Type 2 diabetes mellitus without complications; E78.00 Pure hypercholesterolemia, unspecified

== ENCOUNTER → 2023-04-04 | Outpatient (CLI) | payer MEDICARE ==
[2023-04-04 08:25] LABS: HEMATOCRIT 34.4 % (37.0-47.0); MEAN CELL VOLUME 96.4 fl (81.0-99.0); MEAN CORPUSCULAR HGB CONC 31.1 g/dl (33.0-37.0); MEAN PLATELET VOLUME 9.8 fl (9.6-12.3); RED BLOOD COUNT 3.57 10*6/uL (4.10-5.10); RED CELL DISTRI WIDTH 14.7 % (0-14.5); WHITE BLOOD COUNT 6.6 10*3/uL (4.8-10.8)
[2023-04-04 08:47] LABS: ALKALINE PHOSPHATASE 84 U/L (46-116); BUN 14 mg/dl (9-23); CHLORIDE 110 mmol/L (98-107); CHOLESTEROL 109 mg/dL (<200); LDL CHOLESTEROL 50 mg/dL (9-159); POTASSIUM 4.6 mmol/L (3.4-5.1); SGPT/ALT 84 U/L (10-49); TOTAL PROTEIN 6.6 gm/dL (6.0-8.0); TRIGLYCERIDES 52 mg/dl (<150)
== END | disposition home or self-care (01) ==
LOC: LAB 08:10
PROVIDERS: ATTEND Family Medicine
DX: E11.9 Type 2 diabetes mellitus without complications (principal); E78.00 Pure hypercholesterolemia, unspecified; I10 Essential (primary) hypertension

== ENCOUNTER → 2023-07-05 | Outpatient (CLI) | payer MEDICARE ==
[2023-07-05 11:33] LABS: HEMATOCRIT 36.9 % (37.0-47.0); MEAN CELL VOLUME 93.9 fl (81.0-99.0); MEAN CORPUSCULAR HGB 30.3 pg (27.0-31.0); MEAN CORPUSCULAR HGB CONC 32.2 g/dl (33.0-37.0); MEAN PLATELET VOLUME 9.7 fl (9.6-12.3); RED BLOOD COUNT 3.93 10*6/uL (4.10-5.10); RED CELL DISTRI WIDTH 13.9 % (0-14.5); WHITE BLOOD COUNT 6.1 10*3/uL (4.8-10.8)
[2023-07-05 12:12] LABS: ALKALINE PHOSPHATASE 80 U/L (46-116); BUN 13 mg/dl (9-23); CHLORIDE 108 mmol/L (98-107); CHOLESTEROL 142 mg/dL (<200); LDL CHOLESTEROL 71 mg/dL (9-159); POTASSIUM 4.3 mmol/L (3.4-5.1); SGPT/ALT 43 U/L (5-49); TOTAL PROTEIN 6.9 gm/dL (6.0-8.0); TRIGLYCERIDES 68 mg/dl (<150)
== END | disposition home or self-care (01) ==
LOC: LAB 11:13
PROVIDERS: ATTEND Family Medicine
DX: E11.9 Type 2 diabetes mellitus without complications (principal); E78.00 Pure hypercholesterolemia, unspecified; I10 Essential (primary) hypertension

== ENCOUNTER → 2023-10-05 | Outpatient (CLI) | payer MEDICARE ==
[2023-10-05 13:25] LABS: HEMATOCRIT 38.5 % (37.0-47.0); MEAN CELL VOLUME 95.1 fl (81.0-99.0); MEAN CORPUSCULAR HGB 30.1 pg (27.0-31.0); MEAN CORPUSCULAR HGB CONC 31.7 g/dl (33.0-37.0); MEAN PLATELET VOLUME 9.7 fl (9.6-12.3); RED BLOOD COUNT 4.05 10*6/uL (4.10-5.10); RED CELL DISTRI WIDTH 13.4 % (0-14.5); WHITE BLOOD COUNT 7.5 10*3/uL (4.8-10.8)
[2023-10-05 13:47] LABS: ALKALINE PHOSPHATASE 78 U/L (46-116); BUN 12 mg/dl (9-23); CHLORIDE 106 mmol/L (98-107); CHOLESTEROL 138 mg/dL (<200); CPK 108 U/L (34-171); LDL CHOLESTEROL 66 mg/dL (9-159); POTASSIUM 4.1 mmol/L (3.4-5.1); SGPT/ALT 102 U/L (5-49); TRIGLYCERIDES 81 mg/dl (<150)
== END | disposition home or self-care (01) ==
LOC: LAB 12:58
PROVIDERS: ATTEND Family Medicine
DX: E78.00 Pure hypercholesterolemia, unspecified (principal)

== ENCOUNTER → 2023-11-01 | Outpatient (CLI) | payer MEDICARE ==
[2023-11-01 11:13] LABS: ALKALINE PHOSPHATASE 66 U/L (46-116); BUN 17 mg/dl (9-23); CHLORIDE 105 mmol/L (98-107); CHOLESTEROL 223 mg/dL (<200); GAMMA GLUTAMYL TRANSPEPTIDASE 41 U/L (0-73); LDL CHOLESTEROL 144 mg/dL (9-159); POTASSIUM 4.1 mmol/L (3.4-5.1); SGPT/ALT 40 U/L (5-49); TOTAL PROTEIN 6.8 gm/dL (6.0-8.0); TRIGLYCERIDES 114 mg/dl (<150)
== END | disposition home or self-care (01) ==
LOC: LAB 10:18
PROVIDERS: ATTEND Family Medicine
DX: E78.00 Pure hypercholesterolemia, unspecified (principal); R79.89 Other specified abnormal findings of blood chemistry

== ENCOUNTER → 2024-01-12 | Outpatient (CLI) | payer MEDICARE ==
[2024-01-12 11:22] LABS: HEMATOCRIT 35.7 % (37.0-47.0); MEAN CELL VOLUME 93.7 fl (81.0-99.0); MEAN CORPUSCULAR HGB CONC 33.1 g/dl (33.0-37.0); MEAN PLATELET VOLUME 9.2 fl (9.6-12.3); RED BLOOD COUNT 3.81 10*6/uL (4.10-5.10); RED CELL DISTRI WIDTH 13.3 % (0-14.5); WHITE BLOOD COUNT 6.1 10*3/uL (4.8-10.8)
[2024-01-12 11:57] LABS: ALKALINE PHOSPHATASE 61 U/L (46-116); BUN 15 mg/dl (9-23); CHLORIDE 104 mmol/L (98-107); CHOLESTEROL 204 mg/dL (<200); CPK 207 U/L (34-171); LDL CHOLESTEROL 139 mg/dL (9-159); POTASSIUM 4.5 mmol/L (3.4-5.1); SGPT/ALT 22 U/L (5-49); TOTAL PROTEIN 6.5 gm/dL (6.0-8.0); TRIGLYCERIDES 90 mg/dl (<150)
== END | disposition home or self-care (01) ==
LOC: LAB 11:00
PROVIDERS: ATTEND Family Medicine
DX: I10 Essential (primary) hypertension (principal); E11.9 Type 2 diabetes mellitus without complications; E78.00 Pure hypercholesterolemia, unspecified; E74.9 Disorder of carbohydrate metabolism, unspecified

== ENCOUNTER → 2024-02-16 | Outpatient (CLI) | payer MEDICARE ==
[2024-02-16 08:41] LABS: ALKALINE PHOSPHATASE 65 U/L (46-116); BUN 15 mg/dl (9-23); CHLORIDE 109 mmol/L (98-107); CHOLESTEROL 123 mg/dL (<200); CPK 124 U/L (34-171); LDL CHOLESTEROL 60 mg/dL (9-159); SGPT/ALT 25 U/L (5-49); TOTAL PROTEIN 6.5 gm/dL (6.0-8.0); TRIGLYCERIDES 72 mg/dl (<150)
== END | disposition home or self-care (01) ==
LOC: LAB 07:55
PROVIDERS: ATTEND Family Medicine
DX: E78.00 Pure hypercholesterolemia, unspecified (principal); M79.10 Myalgia, unspecified site

== ENCOUNTER 2024-04-16 13:24 | Emergency (ER) | payer MEDICARE ==
[~2024-04-16] VITALS: Ht 152.4 cm; Wt 65.8 kg
== END 2024-04-16 15:50 | disposition home or self-care (01) ==
LOC: ED 13:24
DX: S92.531A Displaced fracture of distal phalanx of right lesser toe(s), initial encounter for closed fracture (principal); I48.91 Unspecified atrial fibrillation; E11.9 Type 2 diabetes mellitus without complications; E78.5 Hyperlipidemia, unspecified; I10 Essential (primary) hypertension; M19.90 Unspecified osteoarthritis, unspecified site; G43.909 Migraine, unspecified, not intractable, without status migrainosus; Z90.710 Acquired absence of both cervix and uterus; Z90.89 Acquired absence of other organs; Z90.49 Acquired absence of other specified parts of digestive tract; Z98.890 Other specified postprocedural states; Z87.891 Personal history of nicotine dependence; W22.03XA Walked into furniture, initial encounter; Y93.89 Activity, other specified; Y92.009 Unspecified place in unspecified non-institutional (private) residence as the place of occurrence of the external cause; Y99.8 Other external cause status

== ENCOUNTER → 2024-05-24 | Outpatient (CLI) | payer MEDICARE ==
[2024-05-24 12:58] LABS: ALKALINE PHOSPHATASE 66 U/L (46-116); BUN 16 mg/dl (9-23); CHLORIDE 106 mmol/L (98-107); CHOLESTEROL 138 mg/dL (<200); CPK 125 U/L (34-171); LDL CHOLESTEROL 65 mg/dL (9-159); POTASSIUM 4.5 mmol/L (3.4-5.1); SGPT/ALT 38 U/L (5-49); TOTAL PROTEIN 6.8 gm/dL (6.0-8.0); TRIGLYCERIDES 90 mg/dl (<150)
== END | disposition home or self-care (01) ==
LOC: LAB 11:20
PROVIDERS: ATTEND Family Medicine
DX: I10 Essential (primary) hypertension (principal); E78.00 Pure hypercholesterolemia, unspecified; E11.9 Type 2 diabetes mellitus without complications

== ENCOUNTER → 2024-08-27 | Outpatient (CLI) | payer MEDICARE ==
[2024-08-27 11:25] LABS: HEMATOCRIT 38.7 % (37.0-47.0); MEAN CELL VOLUME 94.9 fl (81.0-99.0); MEAN CORPUSCULAR HGB 29.9 pg (27.0-31.0); MEAN CORPUSCULAR HGB CONC 31.5 g/dl (33.0-37.0); MEAN PLATELET VOLUME 9.6 fl (9.6-12.3); RED BLOOD COUNT 4.08 10*6/uL (4.10-5.10); RED CELL DISTRI WIDTH 12.8 % (0-14.5); WHITE BLOOD COUNT 7.5 10*3/uL (4.8-10.8)
[2024-08-27 12:13] LABS: ALKALINE PHOSPHATASE 63 U/L (46-116); BUN 15 mg/dl (9-23); CHLORIDE 104 mmol/L (98-107); CHOLESTEROL 147 mg/dL (<200); CPK 90 U/L (34-171); LDL CHOLESTEROL 69 mg/dL (9-159); POTASSIUM 4.5 mmol/L (3.4-5.1); SGPT/ALT 19 U/L (5-49); TOTAL PROTEIN 7.3 gm/dL (6.0-8.0); TRIGLYCERIDES 108 mg/dl (<150)
== END | disposition home or self-care (01) ==
LOC: LAB 10:58
PROVIDERS: ATTEND Family Medicine
DX: E78.00 Pure hypercholesterolemia, unspecified (principal); E11.9 Type 2 diabetes mellitus without complications; I10 Essential (primary) hypertension; I48.19 Other persistent atrial fibrillation

== ENCOUNTER → 2024-12-02 | Outpatient (CLI) | payer MEDICARE ==
[2024-12-02 11:32] LABS: HEMATOCRIT 35.2 % (37.0-47.0); MEAN CELL VOLUME 97.2 fl (81.0-99.0); MEAN CORPUSCULAR HGB 30.9 pg (27.0-31.0); MEAN CORPUSCULAR HGB CONC 31.8 g/dl (33.0-37.0); MEAN PLATELET VOLUME 9.1 fl (9.6-12.3); RED BLOOD COUNT 3.62 10*6/uL (4.10-5.10); RED CELL DISTRI WIDTH 13.5 % (0-14.5); WHITE BLOOD COUNT 6.1 10*3/uL (4.8-10.8)
[2024-12-02 12:09] LABS: ALKALINE PHOSPHATASE 44 U/L (46-116); BUN 17 mg/dl (9-23); CHLORIDE 102 mmol/L (98-107); CHOLESTEROL 147 mg/dL (<200); CPK 42 U/L (34-171); LDL CHOLESTEROL 70 mg/dL (9-159); POTASSIUM 4.3 mmol/L (3.4-5.1); SGPT/ALT 16 U/L (5-49); TOTAL PROTEIN 6.9 gm/dL (6.0-8.0); TRIGLYCERIDES 94 mg/dl (<150)
== END | disposition home or self-care (01) ==
LOC: LAB 11:13
PROVIDERS: ATTEND Family Medicine
DX: I10 Essential (primary) hypertension (principal); E11.9 Type 2 diabetes mellitus without complications; E78.00 Pure hypercholesterolemia, unspecified